=== PATIENT | male | born 1955 | race Caucasian/White ===

== ENCOUNTER 2020-09-29 17:17 | Emergency (ER) | payer OTHER ==
[2020-09-29 18:37] LABS: HEMOGLOBIN 13.6 gm/dl (14.0-17.5); RED BLOOD COUNT 4.75 M/UL (4.20-5.50); WHITE BLOOD COUNT 9.8 K/UL (4.5-11.0)
[2020-09-29 19:10] LABS: BUN/CREATININE RATIO 28 (0-10)
[2020-09-29] MEDS ORDERED: ASPIRIN CHEWABL81 MG PO (22:21)
[2020-09-29] MEDS ORDERED: [UNRECOGNIZED DRUG - REMARK] (22:27)
== END 2020-09-29 22:30 | disposition home or self-care (01) ==
LOC: ER1 17:17
PROVIDERS: Emergency Medicine
DX: U07.1 COVID-19 (principal); I25.2 Old myocardial infarction; I25.10 Atherosclerotic heart disease of native coronary artery without angina pectoris; I10 Essential (primary) hypertension; E11.9 Type 2 diabetes mellitus without complications; Z95.5 Presence of coronary angioplasty implant and graft; Z88.0 Allergy status to penicillin; Z88.5 Allergy status to narcotic agent; Z88.7 Allergy status to serum and vaccine
CPT/HCPCS: 36415; 71045; 80053; 82550; 82553; 83874; 84484; 85025; 85379; 86140; 99283; M0239